=== PATIENT | female | born 1980 | race Caucasian/White ===

== ENCOUNTER 2016-08-26 08:18 | Emergency (ER) | payer OTHER ==
--- NOTE | 2016-08-26 10:23 | ED CLINICAL REPORT ---
Clinical Report - Physicians/Mid Levels [facility] [address] [place] [address] 08/26/2016 8:19 Patient: LUCILA BRINK Time Seen: 10:13. Arrived- By private vehicle. Historian- patient. HISTORY OF PRESENT ILLNESS Chief Complaint: DENTAL PAIN. This started about 4 days ago and is still present. It was gradual in onset and has been constant. Pain described as severe. The patient has had severe toothache involving a single tooth (left lower molar). She has had left jaw pain. (Pt states the [facility] dentist offices are closed for [facility], until Monday). REVIEW OF SYSTEMS No chills, fever, sweats, calf pain or chest pain. No cough, difficulty breathing, pedal edema, palpitations or abdominal pain. No constipation, diarrhea, nausea, vomiting or urinary problems. All systems otherwise negative, except as recorded above. PAST HISTORY Problems: Dental Caries. Dislocated Shoulder. Pedal Edema. . Acute Pain. Loose Left shoulder joint. Additional Surgeries: . Shoulder Surgery. Medications: Methadone HCl Oral 50 mg. Allergies: Penicillins. SOCIAL HISTORY Former smoker, end date 2015. History of drug use. Is a recovering addict. FAMILY HISTORY No significant family medical history. ADDITIONAL NOTES The nursing notes have been reviewed. PHYSICAL EXAM Vital Signs: 08/26/2016 08:25 BP: 168/108. HR: 92. RR: 18. O2 saturation: 99%. Temp: 98.3 F. Pain level now: 810. Have been reviewed. Appearance: Alert. Eyes: Pupils equal, round and reactive to light. ENT: Severe dental decay with gingival tenderness, induration and swelling (lower left second premolar). Dental tenderness (lower left teeth). Nose normal. Pharynx normal. Uvula midline. Neck: Trachea midline. No adenopathy. Thyroid normal. Neck supple. CVS: Normal heart rate and rhythm. Respiratory: No respiratory distress. Breath sounds normal. Abdomen: Soft. No organomegaly. Skin: Normal skin color. No rash. Normal skin turgor. Extremities: Extremities exhibit normal ROM. Extremities nontender. Neuro: No motor deficit. No sensory deficit. PROGRESS AND PROCEDURES Course of Care: Patient is stable. Patient/family counseled. Old medical records reviewed. Disposition: Discharged. Condition: stable. CLINICAL IMPRESSION Severe dental pain. INSTRUCTIONS Drink plenty of fluids. Warnings: Further evaluation is necessary. GENERAL WARNINGS: Return or contact your physician immediately if your condition worsens or changes unexpectedly, if not improving as expected, or if other problems arise. Prescription Medications: Ketorolac 10 mg tablets: Take 1 tablet orally every 6 hours as needed. Dispense fifteen (15). No refills. Clindamycin 300 mg: take 1 capsule orally every 6 hours for 10 days. No refill. Follow-up: Follow up with a dentist today. Call for an appointment. Understanding of the discharge instructions verbalized by patient. (Electronically signed by Alberto Lozada MD 08/26/2016 20:26)
--- NOTE | 2016-08-26 10:23 | ED NURSING NOTES ---
Clinical Report - Nurses [facility] [address] [place] [address] 08/26/2016 8:19 Patient: LUCILA BRINK TRIAGE Triage time 08:25. Acuity: LEVEL 5. Chief Complaint: LEFT LOWER TOOTHACHE and CHIPPED TOOTH and JAW PAIN. Alert. --08:30 Sari Simon R.N. 08:25 08/26/16. BP: 168/108. HR: 92. RR: 18. O2 saturation: 99%. Temp: 98.3 F. Pain level now: 12/01. --08:30 Sari Simon R.N. Weight: 99.7 kg stated. Height/Length: 68 inches Per Patient. BMI: 33.4. --08:26 Sari Simon R.N. Medications Methadone HCl Oral 50 mg. --08:28 Sari Simon R.N. Allergies Penicillins. --08:28 Sari Simon R.N. History Arrived by private vehicle. Historian: patient. Primary physician (Jenn). ( Pt states the [facility] dentist offices are closed for [facility], until Monday). Onset. (4 days ago). PAST MEDICAL HX: Dental caries. SOCIAL HX: Former smoker, end date 2015. History of drug use. Is a recovering addict. No alcohol use. FALL RISK ASSESSMENT: Fall risk assessment completed. No fall risk identified. --08:30 Sari Simon R.N. PROBLEMS: Dislocated Shoulder. Pedal Edema. . Acute Pain. Loose Left shoulder joint. --08:28 Sari Simon R.N. ADDITIONAL SURGERIES: . Shoulder Surgery. --08:28 Sari Simon R.N. Interventions ID band on patient. To room. --08:30 Sari Simon R.N. PHYSICAL ASSESSMENT 08:30 08/26/16. GENERAL / NEURO / PSYCH: Alert. Oriented X 4. --08:30 Sari Simon R.N. NURSING PROGRESS NOTES 08:30 08/26/16. Patient identifiers checked. Call light placed in reach. Bed placed in lowest position. Patient ready for evaluation- chart flagged. --08:30 Sari Simon R.N. DISPOSITION / DISCHARGE Condition at departure: unchanged. No learning barriers present. Discharge instructions provided and reviewed with the patient. Reviewed medication(s) side effects, precautions, dosing and course information. Prescription(s) given to the patient. Patient verbalized understanding. Written instructions provided in Nepali. The patient was discharged home. She left the Emergency Department ambulatory and via private vehicle. Patient driving. Medication list reviewed and validated. --11:16 Malou Sadler R.N. 10:35 08/26/16. BP: 155/92. HR: 90. RR: 20. O2 saturation: 96%. Temp: deferred. Pain level now: 12/01. 08:25 08/26/16. BP: 168/108. HR: 92. RR: 18. O2 saturation: 99%. Temp: 98.3 F. Pain level now: 12/01. --11:16 Malou Sadler R.N. Departure time: 1035. --11:16 Malou Sadler R.N. Locked/Released at 08/26/2016 11:16 by Malou Sadler R.N.
--- NOTE | 2016-08-26 10:23 | ED NURSING NOTES ---
Clinical Report - Nurses [facility] [address] [place] [address] 08/26/2016 8:19 Patient: LUCILA BRINK TRIAGE Triage time 08:25. Acuity: LEVEL 5. Chief Complaint: LEFT LOWER TOOTHACHE and CHIPPED TOOTH and JAW PAIN. Alert. --08:30 Sari Simon R.N. 08:25 08/26/16. BP: 168/108. HR: 92. RR: 18. O2 saturation: 99%. Temp: 98.3 F. Pain level now: 12/01. --08:30 Sari Simon R.N. Weight: 99.7 kg stated. Height/Length: 68 inches Per Patient. BMI: 33.4. --08:26 Sari Simon R.N. Medications Methadone HCl Oral 50 mg. --08:28 Sari Simon R.N. Allergies Penicillins. --08:28 Sari Simon R.N. History Arrived by private vehicle. Historian: patient. Primary physician (Jenn). ( Pt states the [facility] dentist offices are closed for [facility], until Monday). Onset. (4 days ago). PAST MEDICAL HX: Dental caries. SOCIAL HX: Former smoker, end date 2015. History of drug use. Is a recovering addict. No alcohol use. FALL RISK ASSESSMENT: Fall risk assessment completed. No fall risk identified. --08:30 Sari Simon R.N. PROBLEMS: Dislocated Shoulder. Pedal Edema. . Acute Pain. Loose Left shoulder joint. --08:28 Sari Simon R.N. ADDITIONAL SURGERIES: . Shoulder Surgery. --08:28 Sari Simon R.N. Interventions ID band on patient. To room. --08:30 Sari Simon R.N. PHYSICAL ASSESSMENT 08:30 08/26/16. GENERAL / NEURO / PSYCH: Alert. Oriented X 4. --08:30 Sari Simon R.N. NURSING PROGRESS NOTES 08:30 08/26/16. Patient identifiers checked. Call light placed in reach. Bed placed in lowest position. Patient ready for evaluation- chart flagged. --08:30 Sari Simon R.N. DISPOSITION / DISCHARGE Condition at departure: unchanged. No learning barriers present. Discharge instructions provided and reviewed with the patient. Reviewed medication(s) side effects, precautions, dosing and course information. Prescription(s) given to the patient. Patient verbalized understanding. Written instructions provided in Ukrainian. The patient was discharged home. She left the Emergency Department ambulatory and via private vehicle. Patient driving. Medication list reviewed and validated. --11:16 Malou Sadelr R.N. 10:35 08/26/16. BP: 155/92. HR: 90. RR: 20. O2 saturation: 96%. Temp: deferred. Pain level now: 12/01. 08:25 08/26/16. BP: 168/108. HR: 92. RR: 18. O2 saturation: 99%. Temp: 98.3 F. Pain level now: 12/01. --11:16 Malou Sadler R.N. Departure time: 1035. --11:16 Malou Sadler R.N. Locked/Released at 08/26/2016 11:16 by Malou Sadler R.N.
--- NOTE | 2016-08-26 10:23 | ED CLINICAL REPORT ---
Clinical Report - Physicians/Mid Levels [facility] [address] [place] [address] 08/26/2016 8:19 Patient: LUCILA BRINK Time Seen: 10:13. Arrived- By private vehicle. Historian- patient. HISTORY OF PRESENT ILLNESS Chief Complaint: DENTAL PAIN. This started about 4 days ago and is still present. It was gradual in onset and has been constant. Pain described as severe. The patient has had severe toothache involving a single tooth (left lower molar). She has had left jaw pain. (Pt states the [facility] dentist offices are closed for [facility], until Monday). REVIEW OF SYSTEMS No chills, fever, sweats, calf pain or chest pain. No cough, difficulty breathing, pedal edema, palpitations or abdominal pain. No constipation, diarrhea, nausea, vomiting or urinary problems. All systems otherwise negative, except as recorded above. PAST HISTORY Problems: Dental Caries. Dislocated Shoulder. Pedal Edema. . Acute Pain. Loose Left shoulder joint. Additional Surgeries: . Shoulder Surgery. Medications: Methadone HCl Oral 50 mg. Allergies: Penicillins. SOCIAL HISTORY Former smoker, end date 2015. History of drug use. Is a recovering addict. FAMILY HISTORY No significant family medical history. ADDITIONAL NOTES The nursing notes have been reviewed. PHYSICAL EXAM Vital Signs: 08/26/2016 08:25 BP: 168/108. HR: 92. RR: 18. O2 saturation: 99%. Temp: 98.3 F. Pain level now: 810. Have been reviewed. Appearance: Alert. Eyes: Pupils equal, round and reactive to light. ENT: Severe dental decay with gingival tenderness, induration and swelling (lower left second premolar). Dental tenderness (lower left teeth). Nose normal. Pharynx normal. Uvula midline. Neck: Trachea midline. No adenopathy. Thyroid normal. Neck supple. CVS: Normal heart rate and rhythm. Respiratory: No respiratory distress. Breath sounds normal. Abdomen: Soft. No organomegaly. Skin: Normal skin color. No rash. Normal skin turgor. Extremities: Extremities exhibit normal ROM. Extremities nontender. Neuro: No motor deficit. No sensory deficit. PROGRESS AND PROCEDURES Course of Care: Patient is stable. Patient/family counseled. Old medical records reviewed. Disposition: Discharged. Condition: stable. CLINICAL IMPRESSION Severe dental pain. INSTRUCTIONS Drink plenty of fluids. Warnings: Further evaluation is necessary. GENERAL WARNINGS: Return or contact your physician immediately if your condition worsens or changes unexpectedly, if not improving as expected, or if other problems arise. Prescription Medications: Ketorolac 10 mg tablets: Take 1 tablet orally every 6 hours as needed. Dispense fifteen (15). No refills. Clindamycin 300 mg: take 1 capsule orally every 6 hours for 10 days. No refill. Follow-up: Follow up with a dentist today. Call for an appointment. Understanding of the discharge instructions verbalized by patient. (Electronically signed by Alberto Lozada MD 08/26/2016 20:26)
--- NOTE | 2016-08-26 20:26 | ED MAR SUMMARY ---
..... Medication Administration Record [facility] [address] [place], [place] [id number] Patient: LUCILA BRINK Visit ID: [id number] 35y, F Weight: 99.7 kg Height/Length: 68 in BMI: 33.4 ALLERGIES: Penicillins
--- NOTE | 2016-08-26 20:26 | ED MED RECONCILIATION SUMMARY ---
Patient: LUCILA BRINK Medication Reconciliation Report [facility] VisitID: [id number] [place] [address] 35y, F Registration Date/Time: 08/26/2016 Weight: 99.7 kg Height/Length: 68 in. BMI: 33.4 ALLERGIES: Penicillins The patient's Home Medications are listed below: THE FOLLOWING MEDICATIONS NEED TO BE RECONCILED: Methadone HCl Oral 50 mg The source(s) of the original Home Medication information: Not obtained. The following Medications were given to the patient in the Emergency Department: None. The following Medications were prescribed to the patient: Ketorolac 10 mg tablets: Take 1 tablet orally every 6 hours as needed. Dispense fifteen (15). No refills. -- Alberto Lozada MD Clindamycin 300 mg: take 1 capsule orally every 6 hours for 10 days. No refill. -- Alberto Lozada MD
--- NOTE | 2016-08-26 20:26 | ED DISCHARGE INSTRUCTIONS ---
Patient: LUCILA BRINK General Instructions [facility] VisitID: [id number] [place] [address] 35y, F Registration Date/Time: 08/26/2016 Severe dental pain. INSTRUCTIONS Drink plenty of fluids. Warnings: Further evaluation is necessary. GENERAL WARNINGS: Return or contact your physician immediately if your condition worsens or changes unexpectedly, if not improving as expected, or if other problems arise. Prescription Medications: Ketorolac 10 mg tablets: Take 1 tablet orally every 6 hours as needed. Dispense fifteen (15). No refills. Clindamycin 300 mg: take 1 capsule orally every 6 hours for 10 days. No refill. Follow-up: Follow up with a dentist today. Call for an appointment. Understanding of the discharge instructions verbalized by patient. ADDITIONAL INFORMATION Dental Pain A crack or cavity in the tooth, which exposes the sensitive inner area of the tooth can cause tooth pain. An infection in the gum or the root of the tooth can cause pain and swelling. The pain is often made worse by drinking hot or cold fluids, or biting on hard foods. Pain may spread from the tooth to the ear or jaw on the same side. Home Care: Avoid hot and cold foods and liquids since your tooth may be sensitive to temperature changes. If your tooth is chipped or cracked, or if there is a large open cavity, apply OIL OF CLOVES (available ysss-fma-oboymif in drug stores) directly to the tooth to reduce pain. Some pharmacies carry an ccvl-jjo-yrfhtlz "toothache kit." This contains a paste, which can be applied over the exposed tooth to decrease sensitivity. A cold pack on your jaw over the sore area may help reduce pain. You may use acetaminophen (Tylenol) or ibuprofen (Motrin, Advil) to control pain, unless another medicine was prescribed. [ NOTE: If you have chronic liver or kidney disease or ever had a stomach ulcer or GI bleeding, talk with your doctor before using these medicines.] If you have signs of an infection, an antibiotic will be given. Take it as directed. Follow-Up as directed with a dentist. Your pain may go away with the treatment given. However, only a dentist can fully evaluate and treat the cause and prevent the pain from coming back again. TOOTHACHE IS A SIGN OF DISEASE IN YOUR TOOTH AND SHOULD BE EXAMINED AND TREATED BY A DENTIST. Get Prompt Medical Attention if any of the following occur: Your face becomes swollen or red Pain worsens or spreads to the neck Fever over 100.4 F (38.0 C) Unusual drowsiness; headache or stiff neck; weakness or fainting Pus drains from the tooth Difficulty swallowing or breathing Dental Cavity A dental cavity is a pit or crater in the enamel surface of the tooth. This exposes the sensitive inner layer of the tooth and causes pain. If untreated, the cavity will get bigger and may cause an infection or abscess in the root of the tooth. An infection in the tooth is a much more serious problem and may require a root canal or removal of the entire tooth. The tooth pain may be made worse by drinking hot or cold fluids. It may spread from the tooth to the ear or jaw on the same side. Home Care: Avoid hot and cold foods, and liquids since your tooth may be sensitive to temperature changes. If your tooth is chipped or cracked, or if there is a large open cavity, apply OIL OF CLOVES (available fwxw-nhh-tejdgqh in drug stores) directly to the tooth to reduce pain. Some pharmacies carry an avsl-mnr-stgupon "toothache kit." This contains oil of cloves and a paste, which can be applied over the exposed tooth to decrease sensitivity. An ice pack on your jaw over the sore area may help to reduce pain. You may use acetaminophen (Tylenol) or ibuprofen (Motrin, Advil) to control pain, unless another pain medicine was prescribed. [ NOTE: If you have liver disease or ever had a stomach ulcer, talk with your doctor before using these medicines.] If you have signs of an infection, an antibiotic will be given. Take it as directed. Follow-Up with your dentist as directed. Although your pain may go away with the treatment given, only a dentist can fully evaluate and treat this problem to prevent further tooth damage. Get Prompt Medical Attention if any of the following occur: Redness or swelling of the face Pain worsens or spreads to the neck Fever over 100.5 F (38C) Unusual drowsiness; headache or stiff neck; weakness or fainting Pus drains from the tooth or gum Difficulty swallowing or breathing Ketorolac Tromethamine Oral tablet What is this medicine? KETOROLAC (cesario toe ROLE ak) is a non-steroidal anti-inflammatory drug (NSAID). It is used for a short while to treat moderate to severe pain, including pain after surgery. It should not be used for more than 5 days. How should I use this medicine? Take this medicine by mouth with a full glass of water. Follow the directions on the prescription label. Take your medicine at regular intervals. Do not take your medicine more often than directed. Do not take more than the recommended dose. A special MedGuide will be given to you by the pharmacist with each prescription and refill. Be sure to read this information carefully each time. Talk to your powder blender and pourer regarding the use of this medicine in children. While this drug may be prescribed for children as young as 16 years of age for selected conditions, precautions do apply. Patients over 65 years old may have a stronger reaction and need a smaller dose. What side effects may I notice from receiving this medicine? Side effects that you should report to your doctor or health animal care service worker as soon as possible: allergic reactions like skin rash, itching or hives, swelling of the face, lips, or tongue black or tarry stools breathing problems changes in vision chest pain high blood pressure nausea or vomiting redness, blistering, peeling or loosening of the skin, including inside the mouth severe abdominal pain slurred speech or weakness on one side of the body unexplained weight gain or swelling unusual bleeding or bruising unusually weak or tired yellowing of eyes or skin Side effects that usually do not require medical attention (report to your doctor or health animal care service worker if they continue or are bothersome): diarrhea dizziness headache heartburn What may interact with this medicine? Do not take this medicine with any of the following medications: aspirin and aspirin-like medicines cidofovir methotrexate NSAIDs, medicines for pain and inflammation, like ibuprofen or naproxen pemetrexed probenecid This medicine may also interact with the following medications: alcohol alendronate alprazolam carbamazepine cyclosporine diuretics flavocoxid fluoxetine ginkgo lithium medicines for high blood pressure like enalapril medicines that affect platelets like pentoxifylline medicines that treat or prevent blood clots like heparin, warfarin muscle relaxants phenytoin steroid medicines like prednisone or cortisone thiothixene What if I miss a dose? If you miss a dose, take it as soon as you can. If it is almost time for your next dose, take only that dose. Do not take double or extra doses. Where should I keep my medicine? Keep out of the reach of children. Store at room temperature between 20 and 25 degrees C (68 and 77 degrees F). Throw away any unused medicine after the expiration date. What should I tell my health care provider before I take this medicine? They need to know if you have any of these conditions: asthma bleeding problems like hemophilia cigarette smoker drink more than 3 alcohol containing drinks a day heart disease or circulation problems such as heart failure or leg edema (fluid retention) high blood pressure kidney disease liver disease stomach bleeding or ulcers an unusual or allergic reaction to ketorolac, aspirin, other NSAIDs, other medicines, foods, dyes, or preservatives or trying to get breast-feeding What should I watch for while using this medicine? Tell your doctor or health animal care service worker if your pain does not get better. Talk to your doctor before taking another medicine for pain. Do not treat yourself. This medicine does not prevent heart attack or stroke. In fact, this medicine may increase the chance of a heart attack or stroke. The chance may increase with longer use of this medicine and in people who have heart disease. If you take aspirin to prevent heart attack or stroke, talk with your doctor or health animal care service worker. Do not take medicines such as ibuprofen and naproxen with this medicine. Side effects such as stomach upset, nausea, or ulcers may be more likely to occur. Many medicines available without a prescription should not be taken with this medicine. This medicine can cause ulcers and bleeding in the stomach and intestines at any time during treatment. Do not smoke cigarettes or drink alcohol. These increase irritation to your stomach and can make it more susceptible to damage from this medicine. Ulcers and bleeding can happen without warning symptoms and can cause . You may get drowsy or dizzy. Do not drive, use machinery, or do anything that needs mental alertness until you know how this medicine affects you. Do not stand or sit up quickly, especially if you are an older patient. This reduces the risk of dizzy or fainting spells. This medicine can cause you to bleed more easily. Try to avoid damage to your teeth and gums when you brush or floss your teeth. Clindamycin Hydrochloride Oral capsule What is this medicine? CLINDAMYCIN (KLIN da MYE sin) is a lincosamide antibiotic. It is used to treat certain kinds of bacterial infections. It will not work for colds, flu, or other viral infections. How should I use this medicine? Take this medicine by mouth with a full glass of water. Follow the directions on the prescription label. You can take this medicine with food or on an empty stomach. If the medicine upsets your stomach, take it with food. Take your medicine at regular intervals. Do not take your medicine more often than directed. Take all of your medicine as directed even if you think your are better. Do not skip doses or stop your medicine early. Talk to your powder blender and pourer regarding the use of this medicine in children. Special care may be needed. What side effects may I notice from receiving this medicine? Side effects that you should report to your doctor or health animal care service worker as soon as possible: allergic reactions like skin rash, itching or hives, swelling of the face, lips, or tongue dark urine pain on swallowing redness, blistering, peeling or loosening of the skin, including inside the mouth unusual bleeding or bruising unusually weak or tired yellowing of eyes or skin Side effects that usually do not require medical attention (report to your doctor or health animal care service worker if they continue or are bothersome): diarrhea itching in the rectal or genital area joint pain nausea, vomiting stomach pain What may interact with this medicine? chloramphenicol erythromycin kaolin products What if I miss a dose? If you miss a dose, take it as soon as you can. If it is almost time for your next dose, take only that dose. Do not take double or extra doses. Where should I keep my medicine? Keep out of the reach of children. Store at room temperature between 20 and 25 degrees C (68 and 77 degrees F). Throw away any unused medicine after the expiration date. What should I tell my health care provider before I take this medicine? They need to know if you have any of these conditions: kidney disease liver disease stomach problems like colitis an unusual or allergic reaction to clindamycin, lincomycin, or other medicines, foods, dyes like tartrazine or preservatives or trying to get breast-feeding What should I watch for while using this medicine? Tell your doctor or healthcare professional if your symptoms do not start to get better or if they get worse. Do not treat diarrhea with over the counter products. Contact your doctor if you have diarrhea that lasts more than 2 days or if it is severe and watery. You have been given the following additional information: Dental Pain Dental Cavity Ketorolac Tromethamine Oral tablet Clindamycin Hydrochloride Oral capsule (Electronically signed by Alberto Lozada MD 08/26/2016 20:26)
--- NOTE | 2016-08-26 20:26 | ED MAR SUMMARY ---
..... Medication Administration Record [facility] [address] [place], [place] [id number] Patient: LUCILA BRINK Visit ID: [id number] 35y, F Weight: 99.7 kg Height/Length: 68 in BMI: 33.4 ALLERGIES: Penicillins
--- NOTE | 2016-08-26 20:26 | ED DISCHARGE INSTRUCTIONS ---
Patient: LUCILA BRINK General Instructions [facility] VisitID: [id number] [place] [address] 35y, F Registration Date/Time: 08/26/2016 Severe dental pain. INSTRUCTIONS Drink plenty of fluids. Warnings: Further evaluation is necessary. GENERAL WARNINGS: Return or contact your physician immediately if your condition worsens or changes unexpectedly, if not improving as expected, or if other problems arise. Prescription Medications: Ketorolac 10 mg tablets: Take 1 tablet orally every 6 hours as needed. Dispense fifteen (15). No refills. Clindamycin 300 mg: take 1 capsule orally every 6 hours for 10 days. No refill. Follow-up: Follow up with a dentist today. Call for an appointment. Understanding of the discharge instructions verbalized by patient. ADDITIONAL INFORMATION Dental Pain A crack or cavity in the tooth, which exposes the sensitive inner area of the tooth can cause tooth pain. An infection in the gum or the root of the tooth can cause pain and swelling. The pain is often made worse by drinking hot or cold fluids, or biting on hard foods. Pain may spread from the tooth to the ear or jaw on the same side. Home Care: Avoid hot and cold foods and liquids since your tooth may be sensitive to temperature changes. If your tooth is chipped or cracked, or if there is a large open cavity, apply OIL OF CLOVES (available lupn-nqe-dykvnii in drug stores) directly to the tooth to reduce pain. Some pharmacies carry an ftol-spv-rqmawwz "toothache kit." This contains a paste, which can be applied over the exposed tooth to decrease sensitivity. A cold pack on your jaw over the sore area may help reduce pain. You may use acetaminophen (Tylenol) or ibuprofen (Motrin, Advil) to control pain, unless another medicine was prescribed. [ NOTE: If you have chronic liver or kidney disease or ever had a stomach ulcer or GI bleeding, talk with your doctor before using these medicines.] If you have signs of an infection, an antibiotic will be given. Take it as directed. Follow-Up as directed with a dentist. Your pain may go away with the treatment given. However, only a dentist can fully evaluate and treat the cause and prevent the pain from coming back again. TOOTHACHE IS A SIGN OF DISEASE IN YOUR TOOTH AND SHOULD BE EXAMINED AND TREATED BY A DENTIST. Get Prompt Medical Attention if any of the following occur: Your face becomes swollen or red Pain worsens or spreads to the neck Fever over 100.4 F (38.0 C) Unusual drowsiness; headache or stiff neck; weakness or fainting Pus drains from the tooth Difficulty swallowing or breathing Dental Cavity A dental cavity is a pit or crater in the enamel surface of the tooth. This exposes the sensitive inner layer of the tooth and causes pain. If untreated, the cavity will get bigger and may cause an infection or abscess in the root of the tooth. An infection in the tooth is a much more serious problem and may require a root canal or removal of the entire tooth. The tooth pain may be made worse by drinking hot or cold fluids. It may spread from the tooth to the ear or jaw on the same side. Home Care: Avoid hot and cold foods, and liquids since your tooth may be sensitive to temperature changes. If your tooth is chipped or cracked, or if there is a large open cavity, apply OIL OF CLOVES (available anry-pfh-qkapmry in drug stores) directly to the tooth to reduce pain. Some pharmacies carry an ygsc-vjz-nkrnarh "toothache kit." This contains oil of cloves and a paste, which can be applied over the exposed tooth to decrease sensitivity. An ice pack on your jaw over the sore area may help to reduce pain. You may use acetaminophen (Tylenol) or ibuprofen (Motrin, Advil) to control pain, unless another pain medicine was prescribed. [ NOTE: If you have liver disease or ever had a stomach ulcer, talk with your doctor before using these medicines.] If you have signs of an infection, an antibiotic will be given. Take it as directed. Follow-Up with your dentist as directed. Although your pain may go away with the treatment given, only a dentist can fully evaluate and treat this problem to prevent further tooth damage. Get Prompt Medical Attention if any of the following occur: Redness or swelling of the face Pain worsens or spreads to the neck Fever over 100.5 F (38C) Unusual drowsiness; headache or stiff neck; weakness or fainting Pus drains from the tooth or gum Difficulty swallowing or breathing Ketorolac Tromethamine Oral tablet What is this medicine? KETOROLAC (cesario toe ROLE ak) is a non-steroidal anti-inflammatory drug (NSAID). It is used for a short while to treat moderate to severe pain, including pain after surgery. It should not be used for more than 5 days. How should I use this medicine? Take this medicine by mouth with a full glass of water. Follow the directions on the prescription label. Take your medicine at regular intervals. Do not take your medicine more often than directed. Do not take more than the recommended dose. A special MedGuide will be given to you by the pharmacist with each prescription and refill. Be sure to read this information carefully each time. Talk to your match marker regarding the use of this medicine in children. While this drug may be prescribed for children as young as 16 years of age for selected conditions, precautions do apply. Patients over 65 years old may have a stronger reaction and need a smaller dose. What side effects may I notice from receiving this medicine? Side effects that you should report to your doctor or health child care centre manager as soon as possible: allergic reactions like skin rash, itching or hives, swelling of the face, lips, or tongue black or tarry stools breathing problems changes in vision chest pain high blood pressure nausea or vomiting redness, blistering, peeling or loosening of the skin, including inside the mouth severe abdominal pain slurred speech or weakness on one side of the body unexplained weight gain or swelling unusual bleeding or bruising unusually weak or tired yellowing of eyes or skin Side effects that usually do not require medical attention (report to your doctor or health child care centre manager if they continue or are bothersome): diarrhea dizziness headache heartburn What may interact with this medicine? Do not take this medicine with any of the following medications: aspirin and aspirin-like medicines cidofovir methotrexate NSAIDs, medicines for pain and inflammation, like ibuprofen or naproxen pemetrexed probenecid This medicine may also interact with the following medications: alcohol alendronate alprazolam carbamazepine cyclosporine diuretics flavocoxid fluoxetine ginkgo lithium medicines for high blood pressure like enalapril medicines that affect platelets like pentoxifylline medicines that treat or prevent blood clots like heparin, warfarin muscle relaxants phenytoin steroid medicines like prednisone or cortisone thiothixene What if I miss a dose? If you miss a dose, take it as soon as you can. If it is almost time for your next dose, take only that dose. Do not take double or extra doses. Where should I keep my medicine? Keep out of the reach of children. Store at room temperature between 20 and 25 degrees C (68 and 77 degrees F). Throw away any unused medicine after the expiration date. What should I tell my health care provider before I take this medicine? They need to know if you have any of these conditions: asthma bleeding problems like hemophilia cigarette smoker drink more than 3 alcohol containing drinks a day heart disease or circulation problems such as heart failure or leg edema (fluid retention) high blood pressure kidney disease liver disease stomach bleeding or ulcers an unusual or allergic reaction to ketorolac, aspirin, other NSAIDs, other medicines, foods, dyes, or preservatives or trying to get breast-feeding What should I watch for while using this medicine? Tell your doctor or health child care centre manager if your pain does not get better. Talk to your doctor before taking another medicine for pain. Do not treat yourself. This medicine does not prevent heart attack or stroke. In fact, this medicine may increase the chance of a heart attack or stroke. The chance may increase with longer use of this medicine and in people who have heart disease. If you take aspirin to prevent heart attack or stroke, talk with your doctor or health child care centre manager. Do not take medicines such as ibuprofen and naproxen with this medicine. Side effects such as stomach upset, nausea, or ulcers may be more likely to occur. Many medicines available without a prescription should not be taken with this medicine. This medicine can cause ulcers and bleeding in the stomach and intestines at any time during treatment. Do not smoke cigarettes or drink alcohol. These increase irritation to your stomach and can make it more susceptible to damage from this medicine. Ulcers and bleeding can happen without warning symptoms and can cause . You may get drowsy or dizzy. Do not drive, use machinery, or do anything that needs mental alertness until you know how this medicine affects you. Do not stand or sit up quickly, especially if you are an older patient. This reduces the risk of dizzy or fainting spells. This medicine can cause you to bleed more easily. Try to avoid damage to your teeth and gums when you brush or floss your teeth. Clindamycin Hydrochloride Oral capsule What is this medicine? CLINDAMYCIN (KLIN da MYE sin) is a lincosamide antibiotic. It is used to treat certain kinds of bacterial infections. It will not work for colds, flu, or other viral infections. How should I use this medicine? Take this medicine by mouth with a full glass of water. Follow the directions on the prescription label. You can take this medicine with food or on an empty stomach. If the medicine upsets your stomach, take it with food. Take your medicine at regular intervals. Do not take your medicine more often than directed. Take all of your medicine as directed even if you think your are better. Do not skip doses or stop your medicine early. Talk to your match marker regarding the use of this medicine in children. Special care may be needed. What side effects may I notice from receiving this medicine? Side effects that you should report to your doctor or health child care centre manager as soon as possible: allergic reactions like skin rash, itching or hives, swelling of the face, lips, or tongue dark urine pain on swallowing redness, blistering, peeling or loosening of the skin, including inside the mouth unusual bleeding or bruising unusually weak or tired yellowing of eyes or skin Side effects that usually do not require medical attention (report to your doctor or health child care centre manager if they continue or are bothersome): diarrhea itching in the rectal or genital area joint pain nausea, vomiting stomach pain What may interact with this medicine? chloramphenicol erythromycin kaolin products What if I miss a dose? If you miss a dose, take it as soon as you can. If it is almost time for your next dose, take only that dose. Do not take double or extra doses. Where should I keep my medicine? Keep out of the reach of children. Store at room temperature between 20 and 25 degrees C (68 and 77 degrees F). Throw away any unused medicine after the expiration date. What should I tell my health care provider before I take this medicine? They need to know if you have any of these conditions: kidney disease liver disease stomach problems like colitis an unusual or allergic reaction to clindamycin, lincomycin, or other medicines, foods, dyes like tartrazine or preservatives or trying to get breast-feeding What should I watch for while using this medicine? Tell your doctor or healthcare professional if your symptoms do not start to get better or if they get worse. Do not treat diarrhea with over the counter products. Contact your doctor if you have diarrhea that lasts more than 2 days or if it is severe and watery. You have been given the following additional information: Dental Pain Dental Cavity Ketorolac Tromethamine Oral tablet Clindamycin Hydrochloride Oral capsule (Electronically signed by Alberto Lozada MD 08/26/2016 20:26)
--- NOTE | 2016-08-26 20:26 | ED MED RECONCILIATION SUMMARY ---
Patient: LUCILA BRINK Medication Reconciliation Report [facility] VisitID: [id number] [place] [address] 35y, F Registration Date/Time: 08/26/2016 Weight: 99.7 kg Height/Length: 68 in. BMI: 33.4 ALLERGIES: Penicillins The patient's Home Medications are listed below: THE FOLLOWING MEDICATIONS NEED TO BE RECONCILED: Methadone HCl Oral 50 mg The source(s) of the original Home Medication information: Not obtained. The following Medications were given to the patient in the Emergency Department: None. The following Medications were prescribed to the patient: Ketorolac 10 mg tablets: Take 1 tablet orally every 6 hours as needed. Dispense fifteen (15). No refills. -- Alberto Lozada MD Clindamycin 300 mg: take 1 capsule orally every 6 hours for 10 days. No refill. -- Alberto Lozada MD
== END 2016-08-26 10:35 | disposition home or self-care (01) ==
LOC: ED SRH 08:18
DX: K08.89 Other specified disorders of teeth and supporting structures (principal); Z88.0 Allergy status to penicillin; Z87.891 Personal history of nicotine dependence

== ENCOUNTER 2016-08-26 19:36 | Emergency (ER) | payer OTHER ==
--- NOTE | 2016-08-26 21:07 | ED ORDER SUMMARY ---
..... Patient: LUCILA BRINK OrderSheet [facility] VisitID: [id number] [place] [address] 35y, F Registration Date/Time: 08/26/2016 ORDER SHEET Weight: 99.7 kg (stated) Allergies: Penicillins GENERAL ORDERS: MEDICATION ORDERS: Clindamycin IM 600 mg (NOW) (21:02 08/26/2016 HBivens A.R.N.P.) (21:37 KKnebel R.N.) Toradol IM 60 mg (NOW) (21:02 08/26/2016 HBivens A.R.N.P.) (21:36 Bruce R.N.) IV FLUIDS: ORDER SHEET NOTES: [Electronically signed by Tasia KeysR.N.P. (22:09 08/26/2016)] [Electronically signed by Didi Cortes R.N. (12:14 08/27/2016)] [Electronically locked/signed by Didi Cortes R.N. (12:14 08/27/2016)]
--- NOTE | 2016-08-26 21:07 | ED ORDER SUMMARY ---
..... Patient: LUCILA BRINK OrderSheet [facility] VisitID: [id number] [place] [address] 35y, F Registration Date/Time: 08/26/2016 ORDER SHEET Weight: 99.7 kg (stated) Allergies: Penicillins GENERAL ORDERS: MEDICATION ORDERS: Clindamycin IM 600 mg (NOW) (21:02 08/26/2016 HBivens A.R.N.P.) (21:37 KKnebel R.N.) Toradol IM 60 mg (NOW) (21:02 08/26/2016 HBivens A.R.N.P.) (21:36 Bruce R.N.) IV FLUIDS: ORDER SHEET NOTES: [Electronically signed by Tasia KeysR.N.P. (22:09 08/26/2016)] [Electronically signed by Didi Cortes R.N. (12:14 08/27/2016)] [Electronically locked/signed by Didi Cortes R.N. (12:14 08/27/2016)]
--- NOTE | 2016-08-26 21:07 | ED NURSING NOTES ---
Clinical Report - Nurses [facility] [address] [place] [address] 08/26/2016 19:36 Patient: LUCILA BRINK TRIAGE Triage time 19:44 Aug 26 2016. Acuity: LEVEL 5. Chief Complaint: LEFT LOWER TOOTHACHE and SWELLING OF JAW / FACE. Alert. No acute distress. ELIZABETH COMA SCORE: Elizabeth Coma Scale: 15- eyes open spontaneously (4); best verbal response- oriented x 4 (5); best motor response- obeys commands (6). --19:51 Didi Cortes R.N. 19:44 08/26/16. BP: 141/95. HR: 107. RR: 16. O2 saturation: 99%. Temp: 98.6 F. Pain level now: 12/01. --19:51 Didi Cortes R.N. Weight: 99.7 kg stated. Height/Length: 68 inches Per Patient. BMI: 33.4. --19:50 Didi Cortes R.N. Medications Methadone HCl Oral 50 mg. --19:45 Didi Cortes R.N. Ketorolac Tromethamine Oral (Tablet 10 mg) 1 tablet, 4x a day. --19:46 Didi Cortes R.N. Clindamycin HCl Oral (Capsule 300 mg) 1 capsule, 4x a day. --19:47 Didi Cortes R.N. Medication/allergy information source: the patient. --19:51 Didi Cortes R.N. Allergies Penicillins. --19:45 Didi Cortes R.N. History Arrived by private vehicle. Historian: patient. This started just prior to arrival. ( pt states that tooth is decayed down to the roots.). She has had a toothache (left lower molar). She has had swelling of the jaw (for 20 minutes). Treatment IMPROVEMENT RN: None. PAST MEDICAL HX: Immunizations: up-to-date. SOCIAL HX: Former smoker, end date 2015. No alcohol use or drug use. No infectious disease exposure. SELF HARM ASSESSMENT: A self harm assessment was performed. The patient answered "no" to the question "Do you have thoughts of harming or killing yourself?". FALL RISK ASSESSMENT: Fall risk assessment completed. No fall risk identified. NUTRITIONAL RISK ASSESSMENT: The nutritional risk assessment revealed no deficiencies. FUNCTIONAL ASSESSMENT: Functional assessment: no impairments noted. LEARNING NEEDS ASSESSMENT: The learning needs assessment revealed no barriers. ABUSE ASSESSMENT: Abuse assessment: The patient was asked "Do you feel safe in your home?". SKIN INTEGRITY ASSESSMENT: Skin integrity risk assessment completed. No skin integrity risk identified. --19:51 Didi Cortes R.N. PROBLEMS: Dental Pain. Dental Caries. Dislocated Shoulder. Pedal Edema. . Acute Pain. Immunizations. LNMP - Last Normal Menstrual Period. Loose Left shoulder joint. --19:47 Didi Cortse R.N. ADDITIONAL SURGERIES: . Shoulder Surgery. --19:47 Didi Cortes R.N. Interventions ID band on patient. --19:51 Didi Cortes R.N. PHYSICAL ASSESSMENT GENERAL / NEURO / PSYCH: Alert. Oriented X 4. Appears in no acute distress. HEENT: Voice within normal limits. Localized dental decay (left lower molar area). Mucous membranes are pink. RESPIRATORY: Respirations not labored. CVS: Capillary refill less than 2 seconds. SKIN: Skin is warm and dry. --19:51 Didi Cortes R.N. NURSING PROGRESS NOTES Head of bed elevated. Patient identifiers checked. Call light placed in reach. Bed placed in lowest position. Brakes of bed on. --19:51 Didi Cortes R.N. 21:30 08/26/2016 Toradol (Ketorolac Tromethamine) IM 60 mg given. Given in the right anterior lateral thigh. Allergies verified and confirmed 5 rights. --21:36 Didi Cortes R.N. 21:37 08/26/2016 Clindamycin IM 600 mg given. Given in the right anterior lateral thigh. Allergies verified and confirmed 5 rights. --21:37 Didi Cortes R.N. DISPOSITION / DISCHARGE Departure time: 21:44 Aug 26 2016. Condition at departure: unchanged. No learning barriers present. Discharge instructions provided and reviewed with the patient. Reviewed referral to a dentist and primary care physician. Patient verbalized understanding. Written instructions provided in Lebanese. The patient was discharged home. She left the Emergency Department ambulatory and via private vehicle. Patient driving. FALL RISK ASSESSMENT: Fall risk assessment completed. No fall risk identified. --21:44 Didi Cortes R.N. 21:42 08/26/16. BP: 159/97. HR: 91. RR: 16. O2 saturation: 99%. Pain level now: 08/31. --21:44 Didi Cortes R.N. Locked/Released at 08/27/2016 12:14 by Didi Cortes R.N.
--- NOTE | 2016-08-26 21:07 | ED NURSING NOTES ---
Clinical Report - Nurses [facility] [address] [place] [address] 08/26/2016 19:36 Patient: LUCILA BRINK TRIAGE Triage time 19:44 Aug 26 2016. Acuity: LEVEL 5. Chief Complaint: LEFT LOWER TOOTHACHE and SWELLING OF JAW / FACE. Alert. No acute distress. ELIZABETH COMA SCORE: Elizabeth Coma Scale: 15- eyes open spontaneously (4); best verbal response- oriented x 4 (5); best motor response- obeys commands (6). --19:51 Didi Cortes R.N. 19:44 08/26/16. BP: 141/95. HR: 107. RR: 16. O2 saturation: 99%. Temp: 98.6 F. Pain level now: 12/01. --19:51 Didi Cortes R.N. Weight: 99.7 kg stated. Height/Length: 68 inches Per Patient. BMI: 33.4. --19:50 Didi Cortes R.N. Medications Methadone HCl Oral 50 mg. --19:45 Didi Cortes R.N. Ketorolac Tromethamine Oral (Tablet 10 mg) 1 tablet, 4x a day. --19:46 Didi Cortes R.N. Clindamycin HCl Oral (Capsule 300 mg) 1 capsule, 4x a day. --19:47 Didi Cortes R.N. Medication/allergy information source: the patient. --19:51 Didi Cortes R.N. Allergies Penicillins. --19:45 Didi Cortes R.N. History Arrived by private vehicle. Historian: patient. This started just prior to arrival. ( pt states that tooth is decayed down to the roots.). She has had a toothache (left lower molar). She has had swelling of the jaw (for 20 minutes). Treatment AIRLINE STEWARDESS: None. PAST MEDICAL HX: Immunizations: up-to-date. SOCIAL HX: Former smoker, end date 2015. No alcohol use or drug use. No infectious disease exposure. SELF HARM ASSESSMENT: A self harm assessment was performed. The patient answered "no" to the question "Do you have thoughts of harming or killing yourself?". FALL RISK ASSESSMENT: Fall risk assessment completed. No fall risk identified. NUTRITIONAL RISK ASSESSMENT: The nutritional risk assessment revealed no deficiencies. FUNCTIONAL ASSESSMENT: Functional assessment: no impairments noted. LEARNING NEEDS ASSESSMENT: The learning needs assessment revealed no barriers. ABUSE ASSESSMENT: Abuse assessment: The patient was asked "Do you feel safe in your home?". SKIN INTEGRITY ASSESSMENT: Skin integrity risk assessment completed. No skin integrity risk identified. --19:51 Didi Cortes R.N. PROBLEMS: Dental Pain. Dental Caries. Dislocated Shoulder. Pedal Edema. . Acute Pain. Immunizations. LNMP - Last Normal Menstrual Period. Loose Left shoulder joint. --19:47 Didi Cortes R.N. ADDITIONAL SURGERIES: . Shoulder Surgery. --19:47 Didi Cortes R.N. Interventions ID band on patient. --19:51 Didi Cortes R.N. PHYSICAL ASSESSMENT GENERAL / NEURO / PSYCH: Alert. Oriented X 4. Appears in no acute distress. HEENT: Voice within normal limits. Localized dental decay (left lower molar area). Mucous membranes are pink. RESPIRATORY: Respirations not labored. CVS: Capillary refill less than 2 seconds. SKIN: Skin is warm and dry. --19:51 Didi Cortes R.N. NURSING PROGRESS NOTES Head of bed elevated. Patient identifiers checked. Call light placed in reach. Bed placed in lowest position. Brakes of bed on. --19:51 Didi Cortes R.N. 21:30 08/26/2016 Toradol (Ketorolac Tromethamine) IM 60 mg given. Given in the right anterior lateral thigh. Allergies verified and confirmed 5 rights. --21:36 Didi Cortes R.N. 21:37 08/26/2016 Clindamycin IM 600 mg given. Given in the right anterior lateral thigh. Allergies verified and confirmed 5 rights. --21:37 Didi Cortes R.N. DISPOSITION / DISCHARGE Departure time: 21:44 Aug 26 2016. Condition at departure: unchanged. No learning barriers present. Discharge instructions provided and reviewed with the patient. Reviewed referral to a dentist and primary care physician. Patient verbalized understanding. Written instructions provided in [place]ican. The patient was discharged home. She left the Emergency Department ambulatory and via private vehicle. Patient driving. FALL RISK ASSESSMENT: Fall risk assessment completed. No fall risk identified. --21:44 Didi Cortes R.N. 21:42 08/26/16. BP: 159/97. HR: 91. RR: 16. O2 saturation: 99%. Pain level now: 08/31. --21:44 Didi Cortes R.N. Locked/Released at 08/27/2016 12:14 by Didi Cortes R.N.
--- NOTE | 2016-08-26 21:07 | ED CLINICAL REPORT ---
Clinical Report - Physicians/Mid Levels [facility] [address] [place] [address] 08/26/2016 19:36 Patient: LUCILA BRINK Time Seen: 19:39; upon arrival, initial patient contact, initial documentation, patient care assumed. Arrived- By private vehicle. Historian- patient. RETURN VISIT: recently seen in this ED by another ED physician. Seen now for the same problem as before. HISTORY OF PRESENT ILLNESS Chief Complaint: DENTAL PAIN. This started about 4 days ago and is still present and worsening. Pain described as severe. No sore throat, mouth sores, nasal discharge or congestion or ear pain. No jaw pain or facial pain. She has had toothache and swelling of the jaw and face. (says swelling is worse). Similar symptoms previously: Frequently, milder. Recent medical care: The patient was seen recently at this facility in the emergency department. ( here earlier today for same thing, got rx filled and took dose already). REVIEW OF SYSTEMS No fever or difficulty breathing. All systems otherwise negative, except as recorded above. PAST HISTORY See nurses notes. PROBLEMS: Dental Pain. Dental Caries. Dislocated Shoulder. Pedal Edema. . Acute Pain. Immunizations. LNMP - Last Normal Menstrual Period. Loose Left shoulder joint. --19:47 Didi Cortes R.N. ADDITIONAL SURGERIES: . Shoulder Surgery. --19:47 Didi Cortes R.N. Recovering substance abuse. SOCIAL HISTORY Former smoker. Occasional alcohol use. History of drug use methadone clinic pt. Is a recovering addict. No recent travel. Is a local resident. FAMILY HISTORY Negative. ADDITIONAL NOTES The nursing notes have been reviewed with agreement regarding the chief complaint, HPI, ROS, PMH and patient medications and allergies. PHYSICAL EXAM Vital Signs: 08/26/2016 19:44 BP: 141/95. HR: 107. RR: 16. O2 saturation: 99%. Temp: 98.6 F. Pain level now: 8/10. Have been reviewed as abnormal and appear to be correct. Hypertensive. Tachycardic. Respiratory rate normal. Temperature normal. Oxygen saturation normal. Appearance: Alert. No acute distress. Head: Abnormal external inspection. Mild swelling of the left maxilla. Eyes: Pupils equal, round and reactive to light. Conjunctivae and eyelids normal. ENT: Moderate, extensive dental decay with gingival tenderness and swelling (lower left first premolar and second premolar, lower left first molar). No gingival induration or fluctuance. Ears normal. Nose normal. Trismus present. Pharynx normal. Lips normal. Gums normal. Uvula midline. No dental tenderness or trismus. Neck: Normal inspection. Trachea midline. No adenopathy. Thyroid normal. Neck supple. Respiratory: No respiratory distress. Skin: Normal skin color. No rash. Normal skin turgor. Extremities: Extremities exhibit normal ROM. Extremities nontender. Neuro: Oriented X 3. No motor deficit. No sensory deficit. PROGRESS AND PROCEDURES Course of Care: prior er visit reviewed, and Dr. Lozada also gave me pt report from the visit. Patient counseled in person regarding the patient's stable condition and diagnosis. Differential Diagnosis: Other possible considerations: substance abuse, dental pain, caries, abscess. Above considerations are based on history and physical exam. Differential diagnosis was discussed with patient. Disposition: Discharged home in good and improved condition (21:07). Condition: good and stable. CLINICAL IMPRESSION Moderate dental pain. INSTRUCTIONS (continue with current medications as directed and discussed). Warnings: GENERAL WARNINGS: Return or contact your physician immediately if your condition worsens or changes unexpectedly, if not improving as expected, or if other problems arise. Specifically return if problem worsens. Follow-up: Follow up with a dentist in about two days even if well. Call for an appointment. Summary of care provided to patient. Understanding of the discharge instructions verbalized by patient. (Electronically signed by Tasia Keys A.R.N.P. 08/26/2016 22:09)
--- NOTE | 2016-08-27 12:14 | ED MED RECONCILIATION SUMMARY ---
Patient: LUCILA BRINK Medication Reconciliation Report [facility] VisitID: [id number] [address] [place] [address] 35y, F Registration Date/Time: 08/26/2016 Weight: 99.7 kg Height/Length: 68 in. BMI: 33.4 ALLERGIES: Penicillins The patient's Home Medications are listed below: THE FOLLOWING MEDICATIONS NEED TO BE RECONCILED: Clindamycin HCl Oral (300 mg) 1 capsule, 4x a day Ketorolac Tromethamine Oral (10 mg) 1 tablet, 4x a day Methadone HCl Oral 50 mg The source(s) of the original Home Medication information: patient The following Medications were given to the patient in the Emergency Department: Toradol [IM] IM 60 mg, administered: 08/26/2016 9:30:00 PM Clindamycin [IM] IM 600 mg, administered: 08/26/2016 9:37:00 PM The following Medications were prescribed to the patient: None.
--- NOTE | 2016-08-27 12:14 | ED MAR SUMMARY ---
..... Medication Administration Record [facility] [address] [place] [address] Patient: LUCILA BRINK Visit ID: [id number] 35y, F Weight: 99.7 kg Height/Length: 68 in BMI: 33.4 ALLERGIES: Penicillins Given 21:30 08/26/2016 Didi Cortes REdita Medication Administered: TORADOL [IM] (KETOROLAC TROMETHAMINE), Dose: 60 mg IM. Medication Ordered: Toradol IM 60 mg (NOW). Given 21:37 08/26/2016 Didi Cortes RAdamNAdam Medication Administered: CLINDAMYCIN [IM], Dose: 600 mg IM. Medication Ordered: Clindamycin IM 600 mg (NOW).
--- NOTE | 2016-08-27 12:14 | ED MAR SUMMARY ---
..... Medication Administration Record [facility] [address] [place] [address] Patient: LUCILA BRINK Visit ID: [id number] 35y, F Weight: 99.7 kg Height/Length: 68 in BMI: 33.4 ALLERGIES: Penicillins Given 21:30 08/26/2016 Didi Cortes REdita Medication Administered: TORADOL [IM] (KETOROLAC TROMETHAMINE), Dose: 60 mg IM. Medication Ordered: Toradol IM 60 mg (NOW). Given 21:37 08/26/2016 Didi Cortes RAdamNAdam Medication Administered: CLINDAMYCIN [IM], Dose: 600 mg IM. Medication Ordered: Clindamycin IM 600 mg (NOW).
--- NOTE | 2016-08-27 12:14 | ED DISCHARGE INSTRUCTIONS ---
Patient: LUCILA BRINK General Instructions [facility] VisitID: [id number] [place] [address] 35y, F Registration Date/Time: 08/26/2016 Moderate dental pain. INSTRUCTIONS (continue with current medications as directed and discussed). Warnings: GENERAL WARNINGS: Return or contact your physician immediately if your condition worsens or changes unexpectedly, if not improving as expected, or if other problems arise. Specifically return if problem worsens. Follow-up: Follow up with a dentist in about two days even if well. Call for an appointment. Summary of care provided to patient. Understanding of the discharge instructions verbalized by patient. ADDITIONAL INFORMATION Dental Pain A crack or cavity in the tooth, which exposes the sensitive inner area of the tooth can cause tooth pain. An infection in the gum or the root of the tooth can cause pain and swelling. The pain is often made worse by drinking hot or cold fluids, or biting on hard foods. Pain may spread from the tooth to the ear or jaw on the same side. Home Care: Avoid hot and cold foods and liquids since your tooth may be sensitive to temperature changes. If your tooth is chipped or cracked, or if there is a large open cavity, apply OIL OF CLOVES (available hqye-iyp-xypstuy in drug stores) directly to the tooth to reduce pain. Some pharmacies carry an xevz-sun-uiqkqeb "toothache kit." This contains a paste, which can be applied over the exposed tooth to decrease sensitivity. A cold pack on your jaw over the sore area may help reduce pain. You may use acetaminophen (Tylenol) or ibuprofen (Motrin, Advil) to control pain, unless another medicine was prescribed. [ NOTE: If you have chronic liver or kidney disease or ever had a stomach ulcer or GI bleeding, talk with your doctor before using these medicines.] If you have signs of an infection, an antibiotic will be given. Take it as directed. Follow-Up as directed with a dentist. Your pain may go away with the treatment given. However, only a dentist can fully evaluate and treat the cause and prevent the pain from coming back again. TOOTHACHE IS A SIGN OF DISEASE IN YOUR TOOTH AND SHOULD BE EXAMINED AND TREATED BY A DENTIST. Get Prompt Medical Attention if any of the following occur: Your face becomes swollen or red Pain worsens or spreads to the neck Fever over 100.4 F (38.0 C) Unusual drowsiness; headache or stiff neck; weakness or fainting Pus drains from the tooth Difficulty swallowing or breathing Dental Cavity A dental cavity is a pit or crater in the enamel surface of the tooth. This exposes the sensitive inner layer of the tooth and causes pain. If untreated, the cavity will get bigger and may cause an infection or abscess in the root of the tooth. An infection in the tooth is a much more serious problem and may require a root canal or removal of the entire tooth. The tooth pain may be made worse by drinking hot or cold fluids. It may spread from the tooth to the ear or jaw on the same side. Home Care: Avoid hot and cold foods, and liquids since your tooth may be sensitive to temperature changes. If your tooth is chipped or cracked, or if there is a large open cavity, apply OIL OF CLOVES (available lazn-wpf-kilyybg in drug stores) directly to the tooth to reduce pain. Some pharmacies carry an olgk-glj-xnsganl "toothache kit." This contains oil of cloves and a paste, which can be applied over the exposed tooth to decrease sensitivity. An ice pack on your jaw over the sore area may help to reduce pain. You may use acetaminophen (Tylenol) or ibuprofen (Motrin, Advil) to control pain, unless another pain medicine was prescribed. [ NOTE: If you have liver disease or ever had a stomach ulcer, talk with your doctor before using these medicines.] If you have signs of an infection, an antibiotic will be given. Take it as directed. Follow-Up with your dentist as directed. Although your pain may go away with the treatment given, only a dentist can fully evaluate and treat this problem to prevent further tooth damage. Get Prompt Medical Attention if any of the following occur: Redness or swelling of the face Pain worsens or spreads to the neck Fever over 100.5 F (38C) Unusual drowsiness; headache or stiff neck; weakness or fainting Pus drains from the tooth or gum Difficulty swallowing or breathing Dental Abscess A dental abscess is an infection of the tooth socket. It often starts with a crack or cavity in the tooth. A pocket of pus forms between the tooth and the bone. The infection causes pain and swelling of the gum, cheek or jaw. The pain is often made worse by drinking hot or cold fluids, or biting on hard foods. Pain may be felt in the facial sinus or in the ear. A severe infection can interfere with swallowing and breathing. In the emergency department or clinic, you will be started on an antibiotic. However, final treatment requires drainage of the pus. This can be done by removing the tooth or performing a root canal. A root canal is done by an oral surgeon and involves drilling an opening in the tooth to drain the pus. After the infection has healed, a crown is placed over the tooth. Home care The following guidelines will help you care for your abscess at home: Avoid hot and cold foods and liquids since your tooth may be sensitive to temperature changes. If your tooth is chipped or cracked, or if there is a large open cavity, applyoil of cloves(available zprb-shl-dczjmiw in drug stores) directly to the tooth to reduce pain. Some pharmacies carry an ddko-gcq-johurwz "toothache kit". This contains oil of cloves and a paste, which can be applied over the exposed tooth to decrease sensitivity. Apply an ice pack (ice cubes in a plastic bag, wrapped in a towel) over the injured area for 20 minutes every 12 hours the first day for pain relief. Continue this 34 times a day until the pain and swelling goes away. You may use acetaminophen or ibuprofen to control pain, unless another medicine was prescribed. If you have chronic liver or kidney disease or ever had a stomach ulcer or GI bleeding, talk with your doctor before using these medicines. An antibiotic will be prescribed. Take it as directed until completed, even if you are feeling better sooner. Follow-up care Follow up as directed with a dentist or oral surgeon. Even though your pain may improve with the treatment given today, only a dentist or oral surgeon can provide full treatment for this problem. When to seek medical care Get prompt medical attention or contact your doctor if any of the following occur: Your face or eyelid becomes swollen or red Pain worsens or spreads to the neck Fever over 100.4F (38.0C) Unusual drowsiness; headache or stiff neck; weakness, or fainting Pus drains from the gum or tooth Difficulty talking, swallowing or breathing Unable to open your mouth wide You have been given the following additional information: Dental Pain Dental Cavity Tooth Abscess (Electronically signed by Tasia Keys A.R.N.P. 08/26/2016 22:09)
--- NOTE | 2016-08-27 12:14 | ED MED RECONCILIATION SUMMARY ---
Patient: LUCILA BRINK Medication Reconciliation Report [facility] VisitID: [id number] [address] [place] [address] 35y, F Registration Date/Time: 08/26/2016 Weight: 99.7 kg Height/Length: 68 in. BMI: 33.4 ALLERGIES: Penicillins The patient's Home Medications are listed below: THE FOLLOWING MEDICATIONS NEED TO BE RECONCILED: Clindamycin HCl Oral (300 mg) 1 capsule, 4x a day Ketorolac Tromethamine Oral (10 mg) 1 tablet, 4x a day Methadone HCl Oral 50 mg The source(s) of the original Home Medication information: patient The following Medications were given to the patient in the Emergency Department: Toradol [IM] IM 60 mg, administered: 08/26/2016 9:30:00 PM Clindamycin [IM] IM 600 mg, administered: 08/26/2016 9:37:00 PM The following Medications were prescribed to the patient: None.
--- NOTE | 2016-08-27 12:14 | ED DISCHARGE INSTRUCTIONS ---
Patient: LUCILA BRINK General Instructions [facility] VisitID: [id number] [place] [address] 35y, F Registration Date/Time: 08/26/2016 Moderate dental pain. INSTRUCTIONS (continue with current medications as directed and discussed). Warnings: GENERAL WARNINGS: Return or contact your physician immediately if your condition worsens or changes unexpectedly, if not improving as expected, or if other problems arise. Specifically return if problem worsens. Follow-up: Follow up with a dentist in about two days even if well. Call for an appointment. Summary of care provided to patient. Understanding of the discharge instructions verbalized by patient. ADDITIONAL INFORMATION Dental Pain A crack or cavity in the tooth, which exposes the sensitive inner area of the tooth can cause tooth pain. An infection in the gum or the root of the tooth can cause pain and swelling. The pain is often made worse by drinking hot or cold fluids, or biting on hard foods. Pain may spread from the tooth to the ear or jaw on the same side. Home Care: Avoid hot and cold foods and liquids since your tooth may be sensitive to temperature changes. If your tooth is chipped or cracked, or if there is a large open cavity, apply OIL OF CLOVES (available ahrk-bvz-xuvnuit in drug stores) directly to the tooth to reduce pain. Some pharmacies carry an npzs-txa-fmqczip "toothache kit." This contains a paste, which can be applied over the exposed tooth to decrease sensitivity. A cold pack on your jaw over the sore area may help reduce pain. You may use acetaminophen (Tylenol) or ibuprofen (Motrin, Advil) to control pain, unless another medicine was prescribed. [ NOTE: If you have chronic liver or kidney disease or ever had a stomach ulcer or GI bleeding, talk with your doctor before using these medicines.] If you have signs of an infection, an antibiotic will be given. Take it as directed. Follow-Up as directed with a dentist. Your pain may go away with the treatment given. However, only a dentist can fully evaluate and treat the cause and prevent the pain from coming back again. TOOTHACHE IS A SIGN OF DISEASE IN YOUR TOOTH AND SHOULD BE EXAMINED AND TREATED BY A DENTIST. Get Prompt Medical Attention if any of the following occur: Your face becomes swollen or red Pain worsens or spreads to the neck Fever over 100.4 F (38.0 C) Unusual drowsiness; headache or stiff neck; weakness or fainting Pus drains from the tooth Difficulty swallowing or breathing Dental Cavity A dental cavity is a pit or crater in the enamel surface of the tooth. This exposes the sensitive inner layer of the tooth and causes pain. If untreated, the cavity will get bigger and may cause an infection or abscess in the root of the tooth. An infection in the tooth is a much more serious problem and may require a root canal or removal of the entire tooth. The tooth pain may be made worse by drinking hot or cold fluids. It may spread from the tooth to the ear or jaw on the same side. Home Care: Avoid hot and cold foods, and liquids since your tooth may be sensitive to temperature changes. If your tooth is chipped or cracked, or if there is a large open cavity, apply OIL OF CLOVES (available aydy-hpg-ycojtkp in drug stores) directly to the tooth to reduce pain. Some pharmacies carry an wydv-qqb-sflinfi "toothache kit." This contains oil of cloves and a paste, which can be applied over the exposed tooth to decrease sensitivity. An ice pack on your jaw over the sore area may help to reduce pain. You may use acetaminophen (Tylenol) or ibuprofen (Motrin, Advil) to control pain, unless another pain medicine was prescribed. [ NOTE: If you have liver disease or ever had a stomach ulcer, talk with your doctor before using these medicines.] If you have signs of an infection, an antibiotic will be given. Take it as directed. Follow-Up with your dentist as directed. Although your pain may go away with the treatment given, only a dentist can fully evaluate and treat this problem to prevent further tooth damage. Get Prompt Medical Attention if any of the following occur: Redness or swelling of the face Pain worsens or spreads to the neck Fever over 100.5 F (38C) Unusual drowsiness; headache or stiff neck; weakness or fainting Pus drains from the tooth or gum Difficulty swallowing or breathing Dental Abscess A dental abscess is an infection of the tooth socket. It often starts with a crack or cavity in the tooth. A pocket of pus forms between the tooth and the bone. The infection causes pain and swelling of the gum, cheek or jaw. The pain is often made worse by drinking hot or cold fluids, or biting on hard foods. Pain may be felt in the facial sinus or in the ear. A severe infection can interfere with swallowing and breathing. In the emergency department or clinic, you will be started on an antibiotic. However, final treatment requires drainage of the pus. This can be done by removing the tooth or performing a root canal. A root canal is done by an oral surgeon and involves drilling an opening in the tooth to drain the pus. After the infection has healed, a crown is placed over the tooth. Home care The following guidelines will help you care for your abscess at home: Avoid hot and cold foods and liquids since your tooth may be sensitive to temperature changes. If your tooth is chipped or cracked, or if there is a large open cavity, applyoil of cloves(available wcbm-gsf-wnlvznn in drug stores) directly to the tooth to reduce pain. Some pharmacies carry an utdu-knl-altjhcg "toothache kit". This contains oil of cloves and a paste, which can be applied over the exposed tooth to decrease sensitivity. Apply an ice pack (ice cubes in a plastic bag, wrapped in a towel) over the injured area for 20 minutes every 12 hours the first day for pain relief. Continue this 34 times a day until the pain and swelling goes away. You may use acetaminophen or ibuprofen to control pain, unless another medicine was prescribed. If you have chronic liver or kidney disease or ever had a stomach ulcer or GI bleeding, talk with your doctor before using these medicines. An antibiotic will be prescribed. Take it as directed until completed, even if you are feeling better sooner. Follow-up care Follow up as directed with a dentist or oral surgeon. Even though your pain may improve with the treatment given today, only a dentist or oral surgeon can provide full treatment for this problem. When to seek medical care Get prompt medical attention or contact your doctor if any of the following occur: Your face or eyelid becomes swollen or red Pain worsens or spreads to the neck Fever over 100.4F (38.0C) Unusual drowsiness; headache or stiff neck; weakness, or fainting Pus drains from the gum or tooth Difficulty talking, swallowing or breathing Unable to open your mouth wide You have been given the following additional information: Dental Pain Dental Cavity Tooth Abscess (Electronically signed by Tasia Keys A.R.N.P. 08/26/2016 22:09)
== END 2016-08-26 21:40 | disposition home or self-care (01) ==
LOC: ED SRH 19:36
DX: K08.89 Other specified disorders of teeth and supporting structures (principal); Z87.891 Personal history of nicotine dependence; Z79.891 Long term (current) use of opiate analgesic; Z79.2 Long term (current) use of antibiotics; Z88.0 Allergy status to penicillin

== ENCOUNTER 2016-08-29 02:03 | Emergency (ER) | payer OTHER ==
--- NOTE | 2016-08-29 02:26 | ED NURSING NOTES ---
Clinical Report - Nurses [facility] [address] [place] [address] 08/29/2016 2:03 Patient: LUCILA BRINK TRIAGE Triage time 02:Aug 29 2016. Acuity: LEVEL 3. Chief Complaint: LEFT LOWER TOOTHACHE and SWELLING OF JAW / FACE. 02:09 08/29/16. SEPSIS SCREEN: Sepsis Screen: negative. Infection suspected/documented. Heart rate greater than 90. ELIZABETH COMA SCORE: Elizabeth Coma Scale: 15- eyes open spontaneously (4); best verbal response- oriented x 4 (5); best motor response- obeys commands (6). --02: Piper Overton 02:06 08/29/16. BP: 179/100. HR: 108. RR: 20. O2 saturation: 100%. Temp: 98.8 F (oral). Pain level now: 08/01. --02: Piper Overton. Weight: 99.7 kg stated. Height/Length: 68 inches Per Patient. BMI: 33.4. --02: Piper Overton. Medications Clindamycin HCl Oral (Capsule 300 mg) 1 capsule, 4x a day. Ketorolac Tromethamine Oral (Tablet 10 mg) 1 tablet, 4x a day. Methadone HCl Oral 50 mg. --02: Piper Overton. Allergies Penicillins. --02: Piper Overton. Medication/allergy information source: the patient. --02: Piper Overton. History Arrived by private vehicle. Historian: patient. Accompanied by family. Primary physician ([facility] This started today. ( Patient reports she was here for a dental abscess on Monday and was given antibiotics. She states she has an appointment for dentist tomorrow morning at 0800 but woke tonight with swelling that she states " makes it hard to breathe"). She has a dental appointment scheduled. PAST MEDICAL HX: Immunizations: up-to-date. Uses an intrauterine device. SOCIAL HX: Never smoker. No alcohol use or drug use. No infectious disease exposure. ABUSE ASSESSMENT: No report of abuse. FALL RISK ASSESSMENT: Fall risk assessment completed. No fall risk identified. NUTRITIONAL RISK ASSESSMENT: The nutritional risk assessment revealed no deficiencies. FUNCTIONAL ASSESSMENT: Functional assessment: no impairments noted. LEARNING NEEDS ASSESSMENT: The learning needs assessment revealed no barriers. SKIN INTEGRITY ASSESSMENT: Skin integrity risk assessment completed. No skin integrity risk identified. --02: Piper Overton. PROBLEMS: Substance Abuse. Dental Pain. Dental Caries. Dislocated Shoulder. Pedal Edema. . Acute Pain. Tetanus Status. Immunizations. LNMP - Last Normal Menstrual Period. Loose Left shoulder joint. --02: Piper Overton. ADDITIONAL SURGERIES: . Shoulder Surgery. --02: Piper Overton. Interventions ID band on patient. To treatment room. --02: Piper Overton. PHYSICAL ASSESSMENT GENERAL / NEURO / PSYCH: Alert. Oriented X 4. Appears in no acute distress. HEENT: Pupils equal, round and reactive to light. Pharynx within normal limits. Dental decay (right lower teeth, left lower molar area). ( scant amount of purulent drainage noted). Mucous membranes are pink. RESPIRATORY: Respirations not labored. SKIN: Skin is warm and dry. --02: Piper Overton. NURSING PROGRESS NOTES 02:10 08/29/16. Reassurance given to the patient. Two patient identifiers checked. Call light placed in reach. Side rails up x 1. Bed placed in lowest position. Brakes of bed on. Patient ready for evaluation- chart flagged and ED physician notified. --02: Piper Overton 02:30 08/29/16. BP: 160/90. HR: 80. RR: 20. O2 saturation: 100% on room air. --02:31 Piper Overton. DISPOSITION / DISCHARGE Condition at departure: stable. The goals identified in the patient's plan of care were met. No learning barriers present. Patient verbalized understanding. Written instructions provided in [place]. ( Follow up with dentist as scheduled tomorrow morning. Return if you have difficulty breathing. Follow up with your PCP regarding your blood pressure. Patient verbalized understanding and had no additional questions at this time.). The patient was discharged by the physician. She was discharged home and unaccompanied at time of discharge. She left the Emergency Department ambulatory and via private vehicle. Patient driving. ( 02:30 08/29/16. BP: 160/90. HR: 80. RR: 20. O2 saturation: 100% on room air. Provider aware of vitals, patient clear for discharge). FALL RISK ASSESSMENT: Fall risk assessment completed. No fall risk identified. --02:33 Piper Overton. Locked/Released at 08/29/2016 2:33 by Piper Overton,
--- NOTE | 2016-08-29 02:26 | ED CLINICAL REPORT ---
Clinical Report - Physicians/Mid Levels [facility] [address] [place] [address] 08/29/2016 2:03 Patient: LUCILA BRINK Time Seen: 02:11. Arrived- By private vehicle. Historian- patient. HISTORY OF PRESENT ILLNESS Chief Complaint: SWELLING OF JAW / FACE "feels like my neck is swollen". This started just prior to arrival and is still present but is better now. Pain described as mild. No sore throat, mouth sores, nasal discharge or congestion or ear pain. No jaw pain or facial pain. She has had toothache and swelling of the jaw and face. (The patient has been seen here twice before for dental pain and facial swelling. She's been on clindamycin and states that the swelling has improved since she started the clindamycin. She has an appointment with her dentist 8:00 this morning; however she states that she woke up from sleep feeling as though the opposite side of her throat, which is her right side, was swollen. patient does note that she was laying on the opposite side of the edematous and infected side. Patient states that she began to become anxious and panicked and decided to come to the emergency department. Patient states that she feels much better now that she is up. Patient denies any fever she states overall she is feeling better than when she was seen here 2 days ago. Patient denies any edema or mass sensation under her chin or her tongue. She denies any drainage from her mouth. No change in her voice.). Similar symptoms previously: Recent medical care: The patient was seen recently at this facility in the emergency department. REVIEW OF SYSTEMS No fever, eye discomfort, cough, difficulty breathing or chest pain. No nausea, diarrhea, abdominal pain, difficulty with urination or headache. No fainting episodes, joint pain, skin rash, enlarged lymph nodes or vomiting. Denies current . All systems otherwise negative, except as recorded above. PAST HISTORY Problems: Substance Abuse. Dental Caries. Dislocated Shoulder. Pedal Edema. . Tetanus Status. Immunizations. LNMP - Last Normal Menstrual Period. Additional Surgeries: . Shoulder Surgery. Medications: Clindamycin HCl Oral (Capsule 300 mg) 1 capsule, 4x a day. Ketorolac Tromethamine Oral (Tablet 10 mg) 1 tablet, 4x a day. Methadone HCl Oral 50 mg. Allergies: Penicillins. SOCIAL HISTORY Never smoker. No alcohol use or drug use. PHYSICAL EXAM Appearance: Alert. No acute distress. Head: Mild swelling of the left mandible. Mild swelling of the left maxilla. (patient has no palpable abscess in her left face or gingiva. No submental swelling is noted. No edema of the neck. No vocal muffling.). ENT: Dental decay. Nose normal. Pharynx normal. Lips normal. Gums normal. Uvula midline. Neck: Normal inspection. Trachea midline. No adenopathy. Neck supple. Respiratory: No respiratory distress. No stridor. Skin: Normal skin color. No rash. Normal skin turgor. Extremities: Extremities exhibit normal ROM. Neuro: Oriented X 3. (Grossly intact.). LABS, X-RAYS, AND EKG Pulse Oximetry: 08/29/2016 02:06 O2 saturation: 100%. (FIO2 - room air). Interpretation: normal. PROGRESS AND PROCEDURES Course of Care: I did discuss with the patient that I do not find any evidence of impending airway compromise or deep tissue spread of her infection. Patient states that her facial swelling has actually been improving, and I do not find evidence of swelling outside of the left maxilla and mandibular areas. The patient does not have any stridor or vocal changes and I do not find evidence of an emergency condition at this time. Patient is encouraged to continue taking her clindamycin and to follow-up for her dental appointment this morning and she is scheduled to do. Patient counseled in person regarding the patient's stable condition, diagnosis and need for follow-up. Concerns were addressed. Old medical records reviewed. Disposition: Discharged. Condition: stable and improved. CLINICAL IMPRESSION Dental abscess (improving). No sinus tract. INSTRUCTIONS Drink plenty of fluids. Warnings: GENERAL WARNINGS: Return or contact your physician immediately if your condition worsens or changes unexpectedly, if not improving as expected, or if other problems arise. Your Current Medications: CONTINUE TAKING THE FOLLOWING MEDICATIONS: Clindamycin HCl Oral : Capsule 300 mg, 1 capsule 4x a day. Ketorolac Tromethamine Oral : Tablet 10 mg, 1 tablet 4x a day. Methadone HCl Oral : 50 mg. Follow-up: Follow up with a dentist today as scheduled. Understanding of the discharge instructions verbalized by patient. (Electronically signed by Virginie Little MD 08/29/2016 2:34)
--- NOTE | 2016-08-29 02:26 | ED NURSING NOTES ---
Clinical Report - Nurses [facility] [address] [place] [address] 08/29/2016 2:03 Patient: LUCILA BRINK TRIAGE Triage time 02:Aug 29 2016. Acuity: LEVEL 3. Chief Complaint: LEFT LOWER TOOTHACHE and SWELLING OF JAW / FACE. 02:09 08/29/16. SEPSIS SCREEN: Sepsis Screen: negative. Infection suspected/documented. Heart rate greater than 90. ELIZABETH COMA SCORE: Elizabeth Coma Scale: 15- eyes open spontaneously (4); best verbal response- oriented x 4 (5); best motor response- obeys commands (6). --02: Piper Overton 02:06 08/29/16. BP: 179/100. HR: 108. RR: 20. O2 saturation: 100%. Temp: 98.8 F (oral). Pain level now: 08/01. --02: Piper Overton. Weight: 99.7 kg stated. Height/Length: 68 inches Per Patient. BMI: 33.4. --02: Piper Overton. Medications Clindamycin HCl Oral (Capsule 300 mg) 1 capsule, 4x a day. Ketorolac Tromethamine Oral (Tablet 10 mg) 1 tablet, 4x a day. Methadone HCl Oral 50 mg. --02: Piper Overton. Allergies Penicillins. --02: Piper Overton. Medication/allergy information source: the patient. --02: Piper Overton. History Arrived by private vehicle. Historian: patient. Accompanied by family. Primary physician ([facility]). This started today. ( Patient reports she was here for a dental abscess on Monday and was given antibiotics. She states she has an appointment for dentist tomorrow morning at 0800 but woke tonight with swelling that she states " makes it hard to breathe"). She has a dental appointment scheduled. PAST MEDICAL HX: Immunizations: up-to-date. Uses an intrauterine device. SOCIAL HX: Never smoker. No alcohol use or drug use. No infectious disease exposure. ABUSE ASSESSMENT: No report of abuse. FALL RISK ASSESSMENT: Fall risk assessment completed. No fall risk identified. NUTRITIONAL RISK ASSESSMENT: The nutritional risk assessment revealed no deficiencies. FUNCTIONAL ASSESSMENT: Functional assessment: no impairments noted. LEARNING NEEDS ASSESSMENT: The learning needs assessment revealed no barriers. SKIN INTEGRITY ASSESSMENT: Skin integrity risk assessment completed. No skin integrity risk identified. --02: Piper Overton. PROBLEMS: Substance Abuse. Dental Pain. Dental Caries. Dislocated Shoulder. Pedal Edema. . Acute Pain. Tetanus Status. Immunizations. LNMP - Last Normal Menstrual Period. Loose Left shoulder joint. --02: Piper Overton. ADDITIONAL SURGERIES: . Shoulder Surgery. --02: Piper Overton. Interventions ID band on patient. To treatment room. --02: Piper Overton. PHYSICAL ASSESSMENT GENERAL / NEURO / PSYCH: Alert. Oriented X 4. Appears in no acute distress. HEENT: Pupils equal, round and reactive to light. Pharynx within normal limits. Dental decay (right lower teeth, left lower molar area). ( scant amount of purulent drainage noted). Mucous membranes are pink. RESPIRATORY: Respirations not labored. SKIN: Skin is warm and dry. --02: Piper Overton. NURSING PROGRESS NOTES 02:10 08/29/16. Reassurance given to the patient. Two patient identifiers checked. Call light placed in reach. Side rails up x 1. Bed placed in lowest position. Brakes of bed on. Patient ready for evaluation- chart flagged and ED physician notified. --02: Piper Overton 02:30 08/29/16. BP: 160/90. HR: 80. RR: 20. O2 saturation: 100% on room air. --02:31 Piper Overton. DISPOSITION / DISCHARGE Condition at departure: stable. The goals identified in the patient's plan of care were met. No learning barriers present. Patient verbalized understanding. Written instructions provided in [place]. ( Follow up with dentist as scheduled tomorrow morning. Return if you have difficulty breathing. Follow up with your PCP regarding your blood pressure. Patient verbalized understanding and had no additional questions at this time.). The patient was discharged by the physician. She was discharged home and unaccompanied at time of discharge. She left the Emergency Department ambulatory and via private vehicle. Patient driving. ( 02:30 08/29/16. BP: 160/90. HR: 80. RR: 20. O2 saturation: 100% on room air. Provider aware of vitals, patient clear for discharge). FALL RISK ASSESSMENT: Fall risk assessment completed. No fall risk identified. --02:33 Piper Overton. Locked/Released at 08/29/2016 2:33 by Piper Overton,
--- NOTE | 2016-08-29 02:34 | ED MAR SUMMARY ---
..... Medication Administration Record [facility] [address], [place] [id number] Patient: LUCILA BRINK Visit ID: [id number] 35y, F Weight: 99.7 kg Height/Length: 68 in BMI: 33.4 ALLERGIES: Penicillins
--- NOTE | 2016-08-29 02:34 | ED MED RECONCILIATION SUMMARY ---
Patient: LUCILA BRINK Medication Reconciliation Report Located Within [facility] VisitID: [id number] [address] [place] [place] [address] 35y, F Registration Date/Time: 08/29/2016 Weight: 99.7 kg Height/Length: 68 in. BMI: 33.4 ALLERGIES: Penicillins The patient's Home Medications are listed below: CONTINUE TAKING THE FOLLOWING MEDICATIONS: Clindamycin HCl Oral (300 mg) 1 capsule, 4x a day Ketorolac Tromethamine Oral (10 mg) 1 tablet, 4x a day Methadone HCl Oral 50 mg The source(s) of the original Home Medication information: patient The following Medications were given to the patient in the Emergency Department: None. The following Medications were prescribed to the patient: None.
--- NOTE | 2016-08-29 02:34 | ED DISCHARGE INSTRUCTIONS ---
Patient: LUCILA BRINK General Instructions [facility] VisitID: [id number] [place] [address] 35y, F Registration Date/Time: 08/29/2016 Dental abscess (improving). No sinus tract. INSTRUCTIONS Drink plenty of fluids. Warnings: GENERAL WARNINGS: Return or contact your physician immediately if your condition worsens or changes unexpectedly, if not improving as expected, or if other problems arise. Your Current Medications: CONTINUE TAKING THE FOLLOWING MEDICATIONS: Clindamycin HCl Oral : Capsule 300 mg, 1 capsule 4x a day. Ketorolac Tromethamine Oral : Tablet 10 mg, 1 tablet 4x a day. Methadone HCl Oral : 50 mg. Follow-up: Follow up with a dentist today as scheduled. Understanding of the discharge instructions verbalized by patient. ADDITIONAL INFORMATION Dental Abscess A dental abscess is an infection of the tooth socket. It often starts with a crack or cavity in the tooth. A pocket of pus forms between the tooth and the bone. The infection causes pain and swelling of the gum, cheek or jaw. The pain is often made worse by drinking hot or cold fluids, or biting on hard foods. Pain may be felt in the facial sinus or in the ear. A severe infection can interfere with swallowing and breathing. In the emergency department or clinic, you will be started on an antibiotic. However, final treatment requires drainage of the pus. This can be done by removing the tooth or performing a root canal. A root canal is done by an oral surgeon and involves drilling an opening in the tooth to drain the pus. After the infection has healed, a crown is placed over the tooth. Home care The following guidelines will help you care for your abscess at home: Avoid hot and cold foods and liquids since your tooth may be sensitive to temperature changes. If your tooth is chipped or cracked, or if there is a large open cavity, applyoil of cloves(available vfqv-eld-kvubjxc in drug stores) directly to the tooth to reduce pain. Some pharmacies carry an lbjq-skj-qkszudo "toothache kit". This contains oil of cloves and a paste, which can be applied over the exposed tooth to decrease sensitivity. Apply an ice pack (ice cubes in a plastic bag, wrapped in a towel) over the injured area for 20 minutes every 12 hours the first day for pain relief. Continue this 34 times a day until the pain and swelling goes away. You may use acetaminophen or ibuprofen to control pain, unless another medicine was prescribed. If you have chronic liver or kidney disease or ever had a stomach ulcer or GI bleeding, talk with your doctor before using these medicines. An antibiotic will be prescribed. Take it as directed until completed, even if you are feeling better sooner. Follow-up care Follow up as directed with a dentist or oral surgeon. Even though your pain may improve with the treatment given today, only a dentist or oral surgeon can provide full treatment for this problem. When to seek medical care Get prompt medical attention or contact your doctor if any of the following occur: Your face or eyelid becomes swollen or red Pain worsens or spreads to the neck Fever over 100.4F (38.0C) Unusual drowsiness; headache or stiff neck; weakness, or fainting Pus drains from the gum or tooth Difficulty talking, swallowing or breathing Unable to open your mouth wide You have been given the following additional information: Tooth Abscess (Electronically signed by Virginie Little MD 08/29/2016 2:34)
--- NOTE | 2016-08-29 02:34 | ED MAR SUMMARY ---
..... Medication Administration Record [facility] [address], [place] [id number] Patient: LUCILA BRINK Visit ID: [id number] 35y, F Weight: 99.7 kg Height/Length: 68 in BMI: 33.4 ALLERGIES: Penicillins
--- NOTE | 2016-08-29 02:34 | ED DISCHARGE INSTRUCTIONS ---
Patient: LUCILA BRINK General Instructions [facility] VisitID: [id number] [place] [address] 35y, F Registration Date/Time: 08/29/2016 Dental abscess (improving). No sinus tract. INSTRUCTIONS Drink plenty of fluids. Warnings: GENERAL WARNINGS: Return or contact your physician immediately if your condition worsens or changes unexpectedly, if not improving as expected, or if other problems arise. Your Current Medications: CONTINUE TAKING THE FOLLOWING MEDICATIONS: Clindamycin HCl Oral : Capsule 300 mg, 1 capsule 4x a day. Ketorolac Tromethamine Oral : Tablet 10 mg, 1 tablet 4x a day. Methadone HCl Oral : 50 mg. Follow-up: Follow up with a dentist today as scheduled. Understanding of the discharge instructions verbalized by patient. ADDITIONAL INFORMATION Dental Abscess A dental abscess is an infection of the tooth socket. It often starts with a crack or cavity in the tooth. A pocket of pus forms between the tooth and the bone. The infection causes pain and swelling of the gum, cheek or jaw. The pain is often made worse by drinking hot or cold fluids, or biting on hard foods. Pain may be felt in the facial sinus or in the ear. A severe infection can interfere with swallowing and breathing. In the emergency department or clinic, you will be started on an antibiotic. However, final treatment requires drainage of the pus. This can be done by removing the tooth or performing a root canal. A root canal is done by an oral surgeon and involves drilling an opening in the tooth to drain the pus. After the infection has healed, a crown is placed over the tooth. Home care The following guidelines will help you care for your abscess at home: Avoid hot and cold foods and liquids since your tooth may be sensitive to temperature changes. If your tooth is chipped or cracked, or if there is a large open cavity, applyoil of cloves(available xpba-kwa-gfmness in drug stores) directly to the tooth to reduce pain. Some pharmacies carry an pkbi-pon-nolkhyf "toothache kit". This contains oil of cloves and a paste, which can be applied over the exposed tooth to decrease sensitivity. Apply an ice pack (ice cubes in a plastic bag, wrapped in a towel) over the injured area for 20 minutes every 12 hours the first day for pain relief. Continue this 34 times a day until the pain and swelling goes away. You may use acetaminophen or ibuprofen to control pain, unless another medicine was prescribed. If you have chronic liver or kidney disease or ever had a stomach ulcer or GI bleeding, talk with your doctor before using these medicines. An antibiotic will be prescribed. Take it as directed until completed, even if you are feeling better sooner. Follow-up care Follow up as directed with a dentist or oral surgeon. Even though your pain may improve with the treatment given today, only a dentist or oral surgeon can provide full treatment for this problem. When to seek medical care Get prompt medical attention or contact your doctor if any of the following occur: Your face or eyelid becomes swollen or red Pain worsens or spreads to the neck Fever over 100.4F (38.0C) Unusual drowsiness; headache or stiff neck; weakness, or fainting Pus drains from the gum or tooth Difficulty talking, swallowing or breathing Unable to open your mouth wide You have been given the following additional information: Tooth Abscess (Electronically signed by Virginie Little MD 08/29/2016 2:34)
--- NOTE | 2016-08-29 02:34 | ED MED RECONCILIATION SUMMARY ---
Patient: LUCILA BRINK Medication Reconciliation Report [facility] VisitID: [id number] [address] [place] [address] 35y, F Registration Date/Time: 08/29/2016 Weight: 99.7 kg Height/Length: 68 in. BMI: 33.4 ALLERGIES: Penicillins The patient's Home Medications are listed below: CONTINUE TAKING THE FOLLOWING MEDICATIONS: Clindamycin HCl Oral (300 mg) 1 capsule, 4x a day Ketorolac Tromethamine Oral (10 mg) 1 tablet, 4x a day Methadone HCl Oral 50 mg The source(s) of the original Home Medication information: patient The following Medications were given to the patient in the Emergency Department: None. The following Medications were prescribed to the patient: None.
== END 2016-08-29 02:30 | disposition home or self-care (01) ==
LOC: ED SRH 02:03
DX: K04.7 Periapical abscess without sinus (principal); F19.10 Other psychoactive substance abuse, uncomplicated; Z79.899 Other long term (current) drug therapy; Z88.8 Allergy status to other drugs, medicaments and biological substances; Z88.1 Allergy status to other antibiotic agents